=== PATIENT | male | born 1935 | race Caucasian/White ===

== ENCOUNTER 2016-10-05 04:04 | Emergency (ER) | payer MEDICARE, OTHER ==
--- NOTE | 2016-10-07 19:16 | ER ---
ADMIT: 10/05/2016 RM/LOC: ER [facility] MR#: [id number] [address] MUNA MCCLENDON [address] [place] [address] Emergency Room Report SEX: M AGE: 80 : 1935 DATE: 10/05/2016 HISTORY OF PRESENT ILLNESS: The patient is an 80-year-old male with past medical history of NE, stent, hypertension, prostate cancer, and hypothyroidism, came to the ER with chief complaint of intermittent crampy epigastric abdominal pain, also nausea, and one episode of vomiting, which was nonbilious and nonbloody, and bloody diarrhea 3 to 4 times during the last 2 days. The patient states that he had been seen the [place], had been diagnosed with gastroenteritis stomach flu. The patient states today he felt that this gastroenteritis is not getting better and that is the reason he came to the ER. The patient states the last few days he had one episode of chest pain, which resolved by itself. At the moment, the patient has no chest pain. PHYSICAL EXAMINATION: VITAL SIGNS: In the ER, the patient was afebrile, the patient was mildly tachycardic in 115. GENERAL: The patient was alert and oriented and in no obvious distress. HEAD AND NECK: Exam was noncontributory. LUNGS: Clear bilaterally. HEART: Normal S1 and S2 without any murmurs. ABDOMEN: Had very mild tenderness on the epigastric area, negative Cosme sign, negative CVA tenderness, and the rest of the abdominal exam is negative. The patient had no rebound or guarding. Bowel sounds were normal. The rest of the physical examination was negative except for the dry mucous membranes. Per spouse, the patient was not drinking or eating well. The patient received IV fluids in the ER. LABORATORY DATA: Lab work came back with lactate of 2.3. Sepsis workup was started. Urine was negative for any infection. Chest x-ray did not show any infiltration. EKG did not show any ST or T changes, cardiac enzymes were negative. The lipase was normal, and the rest of the lab works was noncontributory. WBC was normal. The patient had normal hemoglobin too. CT ADMIT: 10/05/2016 RM/LOC: ER [facility] MR#: [id number] [address] [address] [facility] [address] [place] [address] Emergency Room Report SEX: M AGE: 80 : 1935 scan of the abdomen and pelvis with angiogram was done to rule out mesenteric ischemia, which was negative for mesenteric ischemia, but was questionable for gastroenteritis with some evidence of inflammatory intestines. PLAN: The patient received IV fluids, pain was resolved in the ER, the patient could tolerate p.o., and is drinking in the ER. The patient is stable to be discharged to home, and to be followed up by the primary care doctor. The patient was advised to follow up with the primary care doctor today and he agreed with the plan. The patient was given return precautions to come back if the pain returns or if he has any concerns or questions. The patient acknowledged that he understood the plan and agreed with it. The patient was discharged. Rene Klein MD/ tree JOB #: [id number] CC: Rene Klein MD, Attending Physician [facility] Physician, Family Physician
== END 2016-10-05 08:15 | disposition home or self-care (01) ==
LOC: ER 04:04
DX: E86.0 Dehydration (principal); K52.9 Noninfective gastroenteritis and colitis, unspecified; R10.13 Epigastric pain; I10 Essential (primary) hypertension; Z79.899 Other long term (current) drug therapy